=== PATIENT | female | born 1955 | race Caucasian/White ===

== ENCOUNTER → 2016-03-29 | Outpatient (CLI) | payer SELFPAY ==
[~2016-03-29] VITALS: Ht 162.6 cm; Wt 68.2 kg
[~2016-03-29] MED LIST: AC325T PO; ACHD5005 PO; ALPR.5T PO; AMBIEN CR PO; AMOX-355 PO; ASPI1TAB22 PO; BENADRYL; CARV12.52 PO; CLON0.5T3 PO; CYCL-97 PO; CYCL10TA9 PO; CYCL5TAB PO; DIAZ10TA3 PO; DIPH25TA82 PO; DPH25C PO; DULO20CA PO; ENLP10T PO; ESTR0.5T3 PO; ESTR1TAB24 PO; ESTR2TAB4 PO; HALCION; HYDR-2962 PO; HYDR-32; HYDR-3720 PO; HYDR1TAB; KETOROLAC 15 MG/ML VIAL IVP PRN; KETOROLAC 30 MG/ML VIAL ONE; LAMO100T69 PO; LOPE2CAP PO; LORA1TAB PO; MAGNESIUM 1 GM/100 ML IVPB 100 ML IV ONE; MAGNESIUM 1 GM/100 ML IVPB 100 ML IV PRN; MELO-198 PO; METO10TA3 PO; NS IV 500 ML 500 ML IV SCH; OMEP20TA2 PO; ONDN4T PO; PHN100C PO; PNV1TABL77 PO; PREMARIN; PROCHLORPERAZINE 10 MG/2ML INJ (COMPAZINE) IV PRN; SULF1TAB35 PO; TIZA2CAP PO; TIZA4CAP PO; TOPI50TA2 PO; TRIA0.253 PO; WRF2T; ZLP10T; ZLP10T PO; [UNRECOGNIZED DRUG - CODE] PO; [UNRECOGNIZED DRUG - OTHER]; [UNRECOGNIZED DRUG - OTHER] PO; diphenhydrAMINE 50 MG/ML INJ (BENADRYL) ONE; vicodin PO; zanaflex
--- OUTSIDE RECORDS SUMMARY | 2016-03-29 12:57 | XMS REPORT | Continuity of Care Document ---
Author Author [facility] Organization [facility] Address Unknown Phone Unavailable Care Team Providers Care Adult Protective Caseworker Name Role Phone No Pcp, Na PCP Unavailable Source Comments Some departments are not documenting in the electronic medical record. If you do not see the information that you expected, contact Release of Information in the Health Information Management department at [phone] for further assistance in locating additional records.[facility] Active Allergies and Adverse Reactions Allergen Noted Date Severity Reactions Comments Hay Fever And Allergy 09/04/2013 Low SNEEZING Relief Morphine 07/22/2014 Low NAUSEA AND VOMITING Current Medications Prescription Sig. Disp. Refills Start End Date Status Date acyclovir (ZOVIRAX) 800 Take 800 mg by mouth Active mg tablet every 4 hours. 1 tab five times daily HYDROcodone/acetaminophen Take 1 Tab by mouth every Active (NORCO) 5/325 mg tablet 6 hours as needed for Pain gabapentin (NEURONTIN) Take 1 Cap by mouth three 90 Cap 12 01/25/20 Active 300 mg capsule times daily. Take 1 tab 16 for 1 week, then 2 tabs for 1 week, then [address] (CYMBALTA) Take 1 Cap by mouth 90 Cap 1 03/25/19 Active 20 mg capsule daily. Take 20mg BID 14 17 days , then 40mg BID thereafter topiramate (TOPAMAX) 200 Take 1 Tab by mouth twice 180 Tab 12 Active mg tablet daily. 17 cyclobenzaprine Take on tab BID prn 15 Tab 3 03/25/19 Active (FLEXERIL) 5 mg tablet 17 topiramate (TOPAMAX) 200 Take 1 Tab by mouth twice 180 Tab 12 03/25/19 Discontin mg tablet daily. [address] (CYMBALTA) Take 1 Cap by mouth 90 Cap 1 02/23/2003/25 Discontin 20 mg capsule daily. Take 20mg BID 14 16 17 ued days , then 40mg BID thereafter cyclobenzaprine Take on tab BID prn 15 Tab 3 02/23/20 03/25/19 Discontin (FLEXERIL) 5 mg tablet 16 17 ued Active Problems Problem Noted Date Rectal bleeding 06/22/2015 Last Assessment & Plan: - Will obtain CBC, PT, PTT to ensure stability - However, she was urged to see her PCP physician regarding this as soon as possible - By description sounds like anal tears or bleeding hemorrhoids, however she will require further work-up as determined by her PCP. Hyperreflexia 06/22/2015 Overview: In addition to complaint of intermittent leg weakness (strength 5/5 as of right now) and leg numbness. No bowel/bladder complaints L ast Assessment & Plan: Will obtain MRI L Spine Hyperglycemia 06/22/2015 Overview: Multiple complaints which could be related to elevated BS L ast Assessment & Plan: Will obtain Ha1c Idiopathic peripheral neuropathy 06/22/2015 Overview: Present for >10 years SPEP wnl Ha1c NML B12 low - 350 L ast Assessment & Plan: - Recommended starting 1000 mcg oral B12 replacement over the counter - Gabapentin for shingles pain, headache, seizures and neuropathy Neuropathy ([facility]) 07/23/2014 Last Assessment & Plan: - Obtain B12 and SPEP - Cannot order Ha1c as Medicare will not cover Ha1c for Neuropathy. Patient will discuss this with her PCP. Seizure disorder ([facility]) 07/23/2014 Overview: - Status epilepticus admission 08/2013. MRI Brain and LP negative. - Seizures during hospitalization were: L head version, then L hemibody tonicity, followed by rhythmic jerking of all four extremities that would last for around a minute. All events were stereotypic with generalized rhythmic discharges on EEG. - She has multiple other types of episodes which are less clear that they are seizure - these other episodes may have started 10 years ago? Significant Psychiatric history as well. - Stopped Vimpat and Keppra as too expensive and with side effects - Started topamax with good results for both seizures and migraines L ast Assessment & Plan: - Complex partial seizures: 2 events in the past 6 months without secondary generalization. One event likely due to recent shingles infection. She also was mistakingly on 200 mg daily rather than BID 1 week ago she had increased to the correct dosage. She has good control with topamax, and though she does have distal numbness and tingling, she feels as though this is tolerable. - Will continue at topamax 200 mg BID (provided with 1 year prescription) - Gabapentin as below Migraine 12/18/2013 Overview: Headache Questionnaire Complaint: Headache Onset: Worsened in her 30's Exact location/description: throbbing & squeezing pain Frequency: several times per week Severity: 8 Recent head injury? no Decreased level of consciousness? Yes cant concentrate History of migraines? Yes History of hypertension? No Nasal or sinus congestion? No Nausea/Vomiting? Yes Double or blurred vision? Yes blurry vision Dizziness.lightheadedness? Yes Stiff neck? Yes Fever? No What have you taken or done to relieve the pain? Excedrine (stopped taking due to concern for medication overuse), xanaflex, flexaril (helped some) Any relief obtained? some Last Assessment & Plan: - Will titrate off of amitriptyline as this has caused weight gain. SHe is on 75 mg daily, I requested she break the tablet in half and take half a tab for one week then stop. - We will start gabapentin 300 mg TID (titrating up 300 mg daily for a week then 300 mg BID for a week then 300 mg TID thereafter.) We discussed that if she is on 300 mg TID for a month without headache relief we can increase to 600 mg TID, if she is tolerating it well with no side effects. - In the future if gabapentin does not work we can consider propanolol, effexor, cymbalta or nortriptyline. - Recommended that the patient take daily riboflavin and magnesium oxide 400 mg for prophylaxis - She can take excedrin as needed at the start of a headache as long as this does not exceed 8-10 tablets per month. Status epilepticus ([facility]) 09/05/2013 SLE (systemic lupus erythematosus) ([facility]) 09/05/2013 History of DVT (deep vein thrombosis) 09/05/2013 History of pulmonary embolism 09/05/2013 S/P IVC filter 09/05/2013 Respiratory failure ([facility]) 09/04/2013 Mechanically assisted ventilation 09/04/2013 Resolved Problems Problem Noted Date Resolved Date Complex partial seizure disorder (HCC) 09/05/2013 07/23/2014 Overview: - Status epilepticus admission 08/2013. MRI Brain and LP negative. - Seizures during hospitalization were: L head version, then L hemibody tonicity, followed by rhythmic jerking of all four extremities that would last for around a minute. All events were stereotypic with generalized rhythmic discharges on EEG. - She has multiple other types of episodes which are less clear that they are seizure - these other episodes may have started 10 years ago? Significant Psychiatric history as well. - Report of 12 seizures on 03/2014 - Stopped Vimpat and Keppra 2-3 months before this visit secondary to concern of weight gain. L ast Assessment & Plan: - Will try Topamax - titrate up to 200mg BID for seizure and migraine - For continuity of care, will refer to Epilepsy [facility] Hx of migraines 09/05/2013 07/23/2014 Seizures (HCC) 09/03/2013 07/23/2014 Most Recent Encounters Date Type Specialty Providers Description 03/25/2016 Refill Neurology Blanche Portillo MD Migraine without aura and without status migrainosus, not intractable (Primary Dx); Neuropathy (HCC); Idiopathic peripheral neuropathy; Seizure disorder (HCC) 03/13/2016 Documentation Neurology Blanche Portillo MD 02/29/2016 Documentation Neurology Blanche Portillo MD 02/28/2016 Orders Only Neurology Blanche Portillo MD 02/28/2016 Infusion Neurology Blanche Portillo MD 02/23/2016 Refill Neurology Blanche Portillo MD 02/21/2016 Telephone Neurology Blanche Portillo MD Headache 02/21/2016 Documentation Neurology Apollo Aviles MD 01/29/2016 Telephone Neurology Blanche Portillo MD Other 01/25/2016 Office Visit Neurology Blanche Portillo MD Migraine without aura and without status migrainosus, not intractable (Primary Dx); Neuropathy (HCC); Idiopathic peripheral neuropathy; Seizure disorder (HCC) 01/25/2016 Refill Neurology Blanche Portillo MD Social History Tobacco Use Types Packs/Day Years Used Date Never Smoker Alcohol Use Drinks/Week oz/Week Comments No 0 Standard 0.0 drinks or equivalent Last Filed Vital Signs Vital Sign Reading Time Taken Blood Pressure 151/86 01/25/2016 11:[address] Pulse 96 01/25/2016 11:[address] Temperature 36.5 C (97.7 F) 09/10/2013 11:27 AM CDT Respiratory Rate - - Height 1.651 m (5' 5") 01/25/2016 11:[address] Weight 81.647 kg (180 lb) 01/25/2016 11:[address] Body Mass Index 29.95 01/25/2016 11:[address] Oxygen Saturation 98% 09/10/2013 11:27 AM CDT Plan of Care Date Type Specialty Providers Description 07/25/2016 Appointment Radiology Ricco Layton MD [address] [place] [address] [phone] (Fax) 07/25/2016 Appointment Neurology Health Maintenance Due Date Last Done Comments Hepatitis C Screening 1955 Physical (Comprehensive) 10/23/1962 Exam Pertussis Vaccine 10/23/1966 Tetanus Vaccine 10/23/1972 Cervical Cancer Screening 10/23/1976 Breast Cancer Screening 1995 Colorectal Cancer 10/23/2005 Screening Shingles Vaccine 2015 Influenza Vaccine 10/26/2015 Results from Last 3 Months Not on file
[2016-03-29 13:20] VITALS: BP 115/72
[2016-03-29] MEDS: diphenhydrAMINE 50 MG/ML INJ (BENADRYL) IVP PRN ×2 (13:20→14:45)
[2016-03-29 15:30] VITALS: BP 115/72
== END ==
LOC: SDC 12:54
DX: G43.909 Migraine, unspecified, not intractable, without status migrainosus (principal)
CPT/HCPCS: 36415; 82565; 96365; 96366; 96375; 96376

== ENCOUNTER 2020-01-19 10:59 | Emergency (ER) | payer MEDICARE, MEDICAID ==
[~2020-01-19] VITALS: Ht 165 cm; Wt 63.6 kg
[~2020-01-19 10:59] MED LIST changes: -KETOROLAC 15 MG/ML VIAL IVP PRN; -KETOROLAC 30 MG/ML VIAL ONE; -MAGNESIUM 1 GM/100 ML IVPB 100 ML IV ONE; -MAGNESIUM 1 GM/100 ML IVPB 100 ML IV PRN; -NS IV 500 ML 500 ML IV SCH; -PROCHLORPERAZINE 10 MG/2ML INJ (COMPAZINE) IV PRN; -diphenhydrAMINE 50 MG/ML INJ (BENADRYL) ONE
[2020-01-19] MEDS ORDERED: KETOROLAC 30 MG/ML VIAL IVP ONE (11:15)
[2020-01-19] MEDS ORDERED: LORazepam INJ 2 MG/ML (ATIVAN) VIAL IVP ONE (11:15)
--- NOTE | 2020-01-19 11:22 | NUR ---
CALLED AND TALKED WITH
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
[2020-01-19 11:26] LABS: ABG BASE EXCESS -7.8 MMOL/L (-2.5-2.5); ABG OXYGEN SATURATION 98 % (94-100); ABG PCO2 29 MMHG (35-45); ABG PH 7.38 (7.37-7.43); ABG PO2 103 MMHG (79-93); ABG TCO2 17.2 MMOL/L (21.0-31.0)
[2020-01-19 11:28] LABS: INSPIRED O2 ROOM AIR; VENTILATOR NO
--- NOTE | 2020-01-19 11:34 | NUR ---
ABD DRAWN BY MED STUDENT.
[2020-01-19 11:56] LABS: BASOPHILS % (AUTO) 1 % (0-10); EOSINOPHILS # (AUTO) 0.1 10^3/uL (0.0-0.3); EOSINOPHILS % (AUTO) 2 % (0-10); HEMATOCRIT 39 % (35-52); HEMOGLOBIN 11.9 g/dL (11.5-16.0); LYMPHOCYTES % (AUTO) 23 % (12-44); MEAN CORPUSCULAR HEMOGLOBIN 30 pg (25-34); MEAN CORPUSCULAR HGB CONC 31 g/dL (32-36); MEAN CORPUSCULAR VOLUME 98 fL (80-99); MEAN PLATELET VOLUME 10.5 fL (9.0-12.2); MONOCYTES # (AUTO) 0.3 10^3/uL (0.0-1.0); MONOCYTES % (AUTO) 8 % (0-12); NEUTROPHILS # (AUTO) 2.8 10^3/uL (1.8-7.8); NEUTROPHILS % (AUTO) 66 % (42-75); PLATELET COUNT 216 10^3/uL (130-400); WHITE BLOOD COUNT 4.1 10^3/uL (4.3-11.0)
[2020-01-19 12:11] LABS: POTASSIUM 4.3 MMOL/L (3.6-5.0)
[2020-01-19 12:12] LABS: CALCIUM 8.5 MG/DL (8.5-10.1)
[2020-01-19 12:14] LABS: TOTAL PROTEIN 6.9 GM/DL (6.4-8.2)
[2020-01-19 12:16] LABS: BILIRUBIN,TOTAL 0.4 MG/DL (0.1-1.0)
[2020-01-19 12:17] LABS: CREATININE SERUM 1.14 MG/DL (0.60-1.30)
--- NOTE | 2020-01-19 12:40 | NUR ---
EYES CLOSED MORE RELAXED
--- NOTE | 2020-01-19 13:21 | Diagnostic Imaging Report ---
PROCEDURE: CT head and CT cervical spine without contrast. TECHNIQUE: Multiple contiguous axial images were obtained through the brain and cervical spine without the use of intravenous contrast. Sagittal and coronal reformations through the cervical spine were then performed. Auto Exposure Controls were utilized during the CT exam to meet ALARA standards for radiation dose reduction. INDICATION: Fall. Back pain. COMPARISON: 09/01/2013. FINDINGS: CT HEAD: The ventricles and cortical sulci are diffusely prominent, compatible with age-related volume loss. There is no midline shift or mass-effect. No acute intra-axial hemorrhage is seen. There are no abnormal areas of increased or decreased density to suggest acute hemorrhage or edema. No extra-axial masses or collections are present. The bony calvarium is intact. The visualized paranasal sinuses are unremarkable. The mastoid air cells are clear. CT CERVICAL SPINE: Static alignment of the cervical spine is maintained. There is no significant ariella or retrolisthesis. There is no evidence of jumped facets. The vertebral body heights are maintained. There is no acute fracture. No bony fragments are seen within the spinal canal. Mild multilevel degenerative changes are noted and consist of intervertebral disc height loss. There is also endplate sclerosis with anterior and posterior osteophyte formations, greatest at the C5-C6 and C6-C7 levels. Pre and paravertebral soft tissue structures are unremarkable. Note is made of calcified carotid atherosclerosis. Included portions of the lung apices show no additional acute abnormalities. IMPRESSION: 1. No acute intracranial abnormality. No CT evidence of mass, acute infarct or intracranial hemorrhage. 2. No acute fracture or dislocation of the cervical spine. 3. Mild multilevel degenerative changes, greatest at C5-C6 and C6-C7. Dictated by: Dictated on workstation # [id number]
--- NOTE | 2020-01-19 13:28 | Diagnostic Imaging Report ---
PROCEDURE: CT thoracic and lumbar spine without contrast. TECHNIQUE: Multiple contiguous axial images were obtained through the thoracic and lumbar spine without the use of intravenous contrast. Sagittal and coronal reformations were then performed.All CT scans use one or more of the following dose optimizing techniques: automated exposure control, MA and/or KvP adjustment based on a patient size and exam type, or iterative reconstruction. INDICATION: Fall. Back pain. COMPARISON: 05/15/2011. FINDINGS: CT thoracic spine: Static alignment of the thoracic spine is maintained. There is no significant anteroretrolisthesis. There is no evidence of jumped facets. Vertebral body heights are maintained. There is no acute fracture. No bony fragments are seen within the spinal canal. Mild multilevel degenerative changes are noted consistent of intervertebral disc height loss with small anterior disc osteophyte complex formations. There is also mild multilevel facet arthropathy. Pre and paravertebral soft tissue structures are unremarkable. Included portions of the lungs are clear. Small pericardial effusion is noted. CT lumbar spine: Static alignment of the lumbar spine is maintained. There is no significant anteroretrolisthesis. There is no evidence of jumped facets. Vertebral body heights are preserved. There is no acute fracture. No bony fragments of the spinal canal. There are mild multilevel degenerative changes consistent of mild intervertebral disc height loss and mild multilevel facet arthropathy. Pre and paravertebral soft tissue structures are unremarkable. Indwelling IVC filter is noted. IMPRESSION: 1. No acute fracture or dislocation of the thoracic or lumbar spine. Dictated by: Dictated on workstation # [id number]
[2020-01-19] MEDS ORDERED: LACTATED RINGERS 1,000 ML IV STA (13:42)
[2020-01-19] MEDS ORDERED: NAPR-1071 PO (13:53)
--- NOTE | 2020-01-19 13:55 | NUR ---
DR AIKEN CALLED AND TALKED WITH PATIENT PATIENT REPORTS SHE IS FEELING BETTER.
[2020-01-19 14:34] VITALS: BP 102/54
--- NOTE | 2020-01-19 14:38 | NUR ---
HERE TO GET PATIENT.
== END 2020-01-19 14:39 | disposition home or self-care (01) ==
LOC: EDUNIT# 10:59 → ER 11:00
DX: F41.0 Panic disorder [episodic paroxysmal anxiety] (principal); M54.9 Dorsalgia, unspecified; F41.9 Anxiety disorder, unspecified; F32.9 Major depressive disorder, single episode, unspecified; G40.909 Epilepsy, unspecified, not intractable, without status epilepticus; R40.2410 Glasgow coma scale score 13-15, unspecified time; Z79.82 Long term (current) use of aspirin
CPT/HCPCS: 36415; 70450; 72125; 72128; 72131; 80053; 82805; 85025

== ENCOUNTER 2020-01-26 13:30 | Emergency (ER) | payer MEDICAID, MEDICARE ==
[~2020-01-26] VITALS: Ht 170 cm; Wt 65.7 kg
[~2020-01-26 13:30] MED LIST changes: +NAPR-1071 PO
--- NOTE | 2020-01-26 13:59 | ED Head Injury ---
General Chief Complaint: Head/Cervical Problems Stated Complaint: HIT HEAD,AMS Source: patient Exam Limitations: clinical condition (uncooperative, confused ) History of Present Illness Date Seen by Provider: Jan 26, 2020 Time Seen by Provider: 13:58 Initial Comments This is a 64-year-old female who presents to ER with her daughter for complaints of headache altered mental status after falling on 01/19/20. States she was seen at this ED and discharged home with no complications. Daughter states over the past three days she has been having increased episodes of confusion, emotional liability, and headache. States she has a history of seizures and daughter reports witnessing her have 3 seizures "back to back" yesterday afternoon. States her mom's neck turned and her body stiffened up and shook. Denies her having LOC, falling, or loss of incontinence during episodes. Patient is noted to be a poor historian, and has scattered thought processes, making statements of " go get the phone from your dad, he's at the pharmacy, go get the phone" to her daughter. Her daughter states she has never behaved like this in the past. Patient reports GUPTA, generalized body pain from her arthritis, photophobia, cough, shortness of breath, chest pain, weakness on one side of the body, abdominal pain, or dysuria. Allergies and Home Medications Allergies Coded Allergies: No Known Drug Allergies (Unverified , 07/20/08) Home Medications Aspirin/Acetaminophen/Caffeine 1 Tab Tablet, 2 TAB PO DAILY PRN for MIGRAINE, (Reported) Cyclobenzaprine HCl 5 Mg Tablet, 5 MG PO BID PRN, (Reported) Diphenhydramine Hcl 25 Mg Tablet, 25 MG PO Q6H PRN for ALLERGIES, (Reported) Duloxetine HCl 20 Mg Cap, 20 MG PO BID, (Reported) Lorazepam 1 Mg Tablet, 1 MG PO TID PRN for ANXIETY Prescribed by: ALBERT PARADA on 01/26/20 1805 Naproxen 500 Mg Tablet, 500 MG PO BID Prescribed by: DELBERT AIKEN on 01/19/20 1353 Topiramate 50 Mg Tablet, 50 MG PO BID, (Reported) Patient Home Medication List Home Medication List Reviewed: Yes Review of Systems Review of Systems Constitutional: see HPI, weakness Eyes: Photophobia Ears, Nose, Mouth, Throat: no symptoms reported Respiratory: no symptoms reported Cardiovascular: no symptoms reported Gastrointestinal: see HPI Genitourinary: no symptoms reported Musculoskeletal: see HPI Skin: no symptoms reported Psychiatric/Neurological: Anxiety, Emotional Problems, Tonic Clonic Seizures Endocrine: No Symptoms Reported Hematologic/Lymphatic: No Symptoms Reported Past Uuzphkx-Nxleua-Hlrfhb Hx Patient Social History Recent Foreign Travel: No Contact w/Someone Who Travel: No Recent Hopitalizations: Yes Immunizations Up To Date Date of Pneumonia Vaccine: Dec 25, 2010 Date of Influenza Vaccine: Dec 25, 2010 Past Medical History Surgeries: Yes (VENA CAVA FILTER, RAND L FEET. ) Appendectomy, Cardiac, Eye Surgery, Gallbladder, Hysterectomy, Orthopedic, T onsillectomy Respiratory: Yes Pulmonary Embolism Cardiac: Yes (ARYTHMIA AND PARTAIL BLOCKAGE) Neurological: Yes Headaches /Migraines, Seizure Disorder Reproductive Disorders: Yes Benign Prostatic Hyperpl Gastrointestinal: Yes Gastroesophageal Reflux, Diverticulosis, Hiatal Hernia, Ulcer Musculoskeletal: Yes Fibromyalgia, Rheumatoid Arthritis Endocrine: No Lupus Cancer: No Psychosocial: Yes Anxiety, PTSD, Suicide Attempts, Depression Integumentary: No Blood Disorders: No Physical Exam Vital Signs Vital Signs - First Documented 01/26/20 13:59 Temp 36.4 Pulse 100 Resp 25 B/P (MAP) 142/87 (105) Pulse Ox 97 Capillary Refill : Height, Weight, BMI Height: 5'4.00" Weight: 150lbs. 6.0oz. 68.489324ym; 23.00 BMI Method:Stated General Appearance: mild distress HEENT: PERRL/EOMI, pharynx normal, other (PERRL) Neck: full range of motion, supple, normal inspection Cardiovascular: regular rate, rhythm, no murmur Respiratory: chest non-tender, lungs clear, normal breath sounds, no respiratory distress Gastrointestinal: normal bowel sounds, non tender, soft Extremities: normal range of motion, normal inspection, normal capillary refill Psychiatric: alert, oriented x 3 (scattered thought process ), other Crainal Nerves: normal hearing, normal speech, PERRL; No facial asymmetry, No facial droop, No facial weakness, No tongue deviation to R Coordination/Gait: other (non cooperative with exam ) Motor/Sensory: no motor deficit, no sensory deficit Skin: normal color, warm/dry; No rash Rj Coma Score Best Eye Response: (4) Open Spontaneously Best Verbal Response: (5) Oriented Best Motor Response: (6) Obeys Commands Rj Total: 15 Progress/Results/Core Measures Results/Orders Lab Results Laboratory Tests Test 01/26/20 13:55 01/26/20 15:29 01/26/20 15:40 Range/Units White Blood Count 6.5 4.3-11.0 10^3/uL Red Blood Count 3.81 3.80-5.11 10^6/uL Hemoglobin 11.6 11.5-16.0 g/dL Hematocrit 37 35-52 % Mean Corpuscular Volume 96 80-99 fL Mean Corpuscular Hemoglobin 30 25-34 pg Mean Corpuscular Hemoglobin Concent 32 32-36 g/dL Red Cell Distribution Width 12.9 10.0-14.5 % Platelet Count 252 130-400 10^3/uL Mean Platelet Volume 10.6 9.0-12.2 fL Prothrombin Time 14.1 12.2-14.7 SEC INR Comment 1.1 0.8-1.4 Activated Partial Thromboplast Time 20 L 24-35 SEC Sodium Level 141 135-145 MMOL/L Potassium Level 3.3 L 3.6-5.0 MMOL/L Chloride Level 105 98-107 MMOL/L Carbon Dioxide Level 19 L 21-32 MMOL/L Anion Gap 17 H 5-14 MMOL/L Blood Urea Nitrogen 6 L 7-18 MG/DL Creatinine 1.18 0.60-1.30 MG/DL Estimat Glomerular Filtration Rate 46 BUN/Creatinine Ratio 5 Glucose Level 90 70-105 MG/DL Calcium Level 8.9 8.5-10.1 MG/DL Corrected Calcium 8.7 8.5-10.1 MG/DL Total Bilirubin 0.3 0.1-1.0 MG/DL Aspartate Amino Transf (AST/SGOT) 17 5-34 U/L Alanine Aminotransferase (ALT/SGPT) 13 0-55 U/L Alkaline Phosphatase 50 40-136 U/L Total Protein 6.7 6.4-8.2 GM/DL Albumin 4.3 3.2-4.5 GM/DL Serum Alcohol < 10 <10 MG/DL Coronavirus 2019 ([facility]) Negative Negative Urine Color YELLOW Urine Clarity CLOUDY Urine pH 7.0 5-9 Urine Specific Mystic 1.020 1.016-1.022 Urine Protein NEGATIVE NEGATIVE Urine Glucose (UA) NEGATIVE NEGATIVE Urine Ketones 2+ H NEGATIVE Urine Nitrite NEGATIVE NEGATIVE Urine Bilirubin 2+ H NEGATIVE Urine Urobilinogen 0.2 < = 1.0 MG/DL Urine Leukocyte Esterase NEGATIVE NEGATIVE Urine RBC (Auto) NEGATIVE NEGATIVE Urine RBC NONE /HPF Urine WBC 2-5 /HPF Urine Squamous Epithelial Cells 2-5 /HPF Urine Crystals PRESENT H /LPF Urine Amorphous Sediment FEW EMILY URATES H /LPF Urine Bacteria FEW H /HPF Urine Casts PRESENT /LPF Urine Granular Casts 5-10 H /LPF Urine Mucus NEGATIVE /LPF Urine Culture Indicated YES My Orders Orders - ALBERT PARADA DEV OPS ENGINEER Cbc No Diff (01/26/20 13:49) Alcohol (01/26/20 13:49) Ua Culture If Indicated (01/26/20 13:49) Ct Head/Cervical Spine Wo (01/26/20 13:49) Ed Iv/Invasive Line Start (01/26/20 13:49) Comprehensive Metabolic Panel (01/26/20 13:49) Protime With Inr (01/26/20 14:03) Partial Thromboplastin Time (01/26/20 14:03) Lactated Ringers (Lr 1000 Ml Iv Solution (01/26/20 14:25) Lorazepam Injection (Ativan Injection) (01/26/20 15:15) Urine Culture (01/26/20 15:40) Covid 19 Inhouse Test (01/26/20 16:39) Medications Given in ED Current Medications Medications Dose Ordered Sig/Radha Route Start Time Stop Time Status Last Admin Dose Admin Lactated Ringer's 1,000 ml @ 0 mls/hr Q0M ONCE IV 01/26/20 14:25 01/26/20 14:26 DC 01/26/20 14:38 1,000 MLS/HR Lorazepam 2 mg ONCE ONCE IVP 01/26/20 15:15 01/26/20 15:16 DC 01/26/20 15:18 2 MG Vital Signs/I&O 01/26/20 01/26/20 13:59 18:05 Temp 36.4 36.4 Pulse 100 100 Resp 25 25 B/P (MAP) 142/87 (105) 142/87 (105) Pulse Ox 97 97 Progress Progress Note : Progress Note Upon arrival patient has intermittent episodes of clear thoughts and scattered thought process. She is uncooperative with exam, and appears very excitable, anxious, and irritable while obtaining history and physical. While discussing symptoms with daughter, she would intermittently interject with corrected inform ation (such as name of her doctor or medications). Concerns for hemorrage post fall. Ordered basic labs, ETOH, and CT head/neck. While talking with daughter patient became very agitated chanting "theres nothing wrong with me, I'm perfectly fine, you will find nothing wrong with me because I am "perfectly" fine". He behavior was bordering on hysteria. Ordered Ativan 2mg IVP. Apx 30 minutes after Ativan, patient calm and more cooperative. Discussed findings of labs and CT with daughter and patient. Offered to consult neurology for persistent seizure and changes in mentation. Both agreeable with consultation. Reviewed symptoms and findings with her . He states patient has been having increasing episodes of emotional lability going from happy, to crying, to angry, and then back to overly loving. Also states these behaviors seem to have worsened since their children have moved out. Discussed case with adobe cq developer at [facility]. The attending neurologist was unable to personally review case on phone, however the adobe cq developer reviewed the case with him as well as previous testing/visits at . States patient has had normal EEG's and no witnessed seizures at and notes the possibility of pseudo seizures. Discussed that the patient was just started on Keppra in November and this may be contributing to her agiation and labile moods. Neuro recommended stopping Keppra and starting on alternative medication such as Lamictal, or having her call in tomorrow to the clinical for televisit and having her neurologist adjust medications. Reviewed recommendations by neurology and discharge plan of care with patient, spouse, and daughter. All are agreeable with plan. Diagnostic Imaging Diagonstic Imaging: CT Plain Films/CT/US/NM/MRI: c-spine, head Comments NAME: TASH GUALLPA MED REC#: [id number] PT STATUS: REG ER : 1955 PHYSICIAN: ALBERT PARADA APRN ADMIT DATE: 01/26/20/ER Signed Date of Exam:01/26/20 CT HEAD/CERVICAL SPINE WO PROCEDURE: CT head and CT cervical spine without contrast. TECHNIQUE: Multiple contiguous axial images were obtained through the brain and cervical spine without the use of intravenous contrast. Sagittal and coronal reformations through the cervical spine were then performed. Auto Exposure Controls were utilized during the CT exam to meet ALARA standards for radiation dose reduction. INDICATION: Fall with altered mental status. Comparison is made with prior CT from 01/19/2020. CT BRAIN: Ventricles and sulci are within normal limits. No sulcal effacement or midline shift is identified. No acute intra-axial or extra-axial hemorrhage is detected. Cisterns are patent. Visualized paranasal sinuses are clear. IMPRESSION: No acute intracranial process is detected. CT CERVICAL SPINE: Alignment is normal. There is degenerative disc disease at C5-C6 and C6-C7 levels with disc space narrowing and marginal spurring. There is multilevel facet arthropathy. No fracture is identified. Odontoid is intact. Prevertebral tissues are within normal limits. IMPRESSION: Cervical spondylosis. No acute bony abnormality is detected. Dictated by: Dictated on workstation # [id number] Dict: 01/26/20 1412 Trans: 01/26/20 1607 [facility] [id number] Interpreted by: RAJIV MOONEY MD Electronically signed by: RAJIV MOONEY MD 01/26/20 1607 Departure Communication (Admissions) Time/Spoke to Consulting Phy: 16:04 Neurology Impression Primary Impression: Migraine Additional Impression: Seizure after head injury Disposition: 01 HOME, SELF-CARE Condition: Improved Departure-Patient Inst. Decision time for Depature: 17:42 Referrals: JOSEFINA NGUYỄN DO (PCP) Primary Care Physician NO,LOCAL PHYSICIAN (Family) Primary Care Physician Patient Instructions: Migraines (DC), Seizures, Adult (DC) Add. Discharge Instructions: Plan: 1. Discharge home. 2. Hold Keppra tonight and tomorrow. 3. May take Ativan 1mg by mouth three times a day as needed for anxiety. Take one tablet tonight and one tablet int the morning. 4. Call Neruology clinic in the morning for follow up. Per on-call Neurologist recommendations patient should receive tele-health visit tomorrow to discuss possibly changing medication from Keppra to an alternative medication due to possible adverse reaction of agitation and irritability ([phone]). 5. May return to ER for any new, concerning, or worsening symptoms. All discharge instructions reviewed with patient and/or family. Voiced understanding. Scripts Lorazepam (Ativan) 1 Mg Tablet 1 MG PO TID PRN for ANXIETY for 7 Days, #20 TAB 0 Refills Prov: ALBERT PARADA DEV OPS ENGINEER 01/26/20 ALBERT PARADA APRN Jan 26, 2020 13:59
[2020-01-26 14:03] LABS: HEMOGLOBIN 11.6 g/dL (11.5-16.0); MEAN PLATELET VOLUME 10.6 fL (9.0-12.2); WHITE BLOOD COUNT 6.5 10^3/uL (4.3-11.0)
[2020-01-26 14:16] LABS: ALBUMIN 4.3 GM/DL (3.2-4.5); CHLORIDE 105 MMOL/L (98-107); POTASSIUM 3.3 MMOL/L (3.6-5.0)
[2020-01-26 14:17] LABS: SODIUM 141 MMOL/L (135-145)
[2020-01-26 14:18] LABS: CALCIUM 8.9 MG/DL (8.5-10.1)
--- NOTE | 2020-01-26 14:18 | Diagnostic Imaging Report ---
PROCEDURE: CT head and CT cervical spine without contrast. TECHNIQUE: Multiple contiguous axial images were obtained through the brain and cervical spine without the use of intravenous contrast. Sagittal and coronal reformations through the cervical spine were then performed. Auto Exposure Controls were utilized during the CT exam to meet ALARA standards for radiation dose reduction. INDICATION: Fall with altered mental status. Comparison is made with prior CT from 01/19/2020. CT BRAIN: Ventricles and sulci are within normal limits. No sulcal effacement or midline shift is identified. No acute intra-axial or extra-axial hemorrhage is detected. Cisterns are patent. Visualized paranasal sinuses are clear. IMPRESSION: No acute intracranial process is detected. CT CERVICAL SPINE: Alignment is normal. There is degenerative disc disease at C5-C6 and C6-C7 levels with disc space narrowing and marginal spurring. There is multilevel facet arthropathy. No fracture is identified. Odontoid is intact. Prevertebral tissues are within normal limits. IMPRESSION: Cervical spondylosis. No acute bony abnormality is detected. Dictated by: Dictated on workstation # [id number]
[2020-01-26 14:19] LABS: GLUCOSE 90 MG/DL (70-105); TOTAL PROTEIN 6.7 GM/DL (6.4-8.2)
[2020-01-26 14:20] LABS: CARBON DIOXIDE 19 MMOL/L (21-32)
[2020-01-26 14:21] LABS: BILIRUBIN,TOTAL 0.3 MG/DL (0.1-1.0)
[2020-01-26 14:22] LABS: ALKALINE PHOSPHATASE 50 U/L (40-136)
[2020-01-26 14:23] LABS: CREATININE SERUM 1.18 MG/DL (0.60-1.30); GFR ESTIMATED 46
[2020-01-26 14:24] LABS: BUN/CREATININE RATIO 5
[2020-01-26 14:25] LABS: ALANINE AMINOTRANSFERASE 13 U/L (0-55)
[2020-01-26] MEDS ORDERED: LACTATED RINGERS 1,000 ML IV ONE (14:25)
[2020-01-26 14:30] LABS: INR 1.1 (0.8-1.4); PROTHROMBIN TIME PATIENT 14.1 SEC (12.2-14.7)
[2020-01-26] MEDS ORDERED: LORazepam INJ 2 MG/ML (ATIVAN) VIAL IVP ONE (15:15)
[2020-01-26 15:45] LABS: BILIRUBIN,URINE 2+ (NEGATIVE); CLARITY,URINE CLOUDY; COLOR,URINE YELLOW; GLUCOSE, URINE (UA) NEGATIVE (NEGATIVE); KETONES,URINE 2+ (NEGATIVE); LEUKOCYTE ESTERASE ,URINE NEGATIVE (NEGATIVE); NITRITE,URINE NEGATIVE (NEGATIVE); PROTEIN,URINE NEGATIVE (NEGATIVE)
[2020-01-26 16:04] LABS: AMORPHOUS SEDIMENT,UR FEW AMOR URATES /LPF; BACTERIA,URINE FEW /HPF
[2020-01-26 18:05] VITALS: BP 142/87
[2020-01-26] MEDS ORDERED: LORA-405 PO (18:05)
== END 2020-01-26 18:14 | disposition home or self-care (01) ==
LOC: EDUNIT# 13:30 → ER 13:32
DX: G43.909 Migraine, unspecified, not intractable, without status migrainosus (principal); G40.909 Epilepsy, unspecified, not intractable, without status epilepticus; F41.9 Anxiety disorder, unspecified; F32.9 Major depressive disorder, single episode, unspecified; R40.2410 Glasgow coma scale score 13-15, unspecified time; Z20.828 Contact with and (suspected) exposure to other viral communicable diseases; Z79.82 Long term (current) use of aspirin
CPT/HCPCS: 70450; 72125; 80053; 81000; 85027; 85610; 85730; 87088; G0480; U0002; 36415; 80320; 87635

== ENCOUNTER → 2020-02-09 | Outpatient (CLI) | payer MEDICARE ==
[~2020-02-09] MED LIST changes: +GADOBUTROL 7.5 MMOL/7.5 ML (GADAVIST) VIAL IV ONE; +LORA-405 PO
--- NOTE | 2020-02-09 15:13 | Diagnostic Imaging Report ---
PROCEDURE: MR imaging of the brain with and without contrast. TECHNIQUE: Multiplanar, multisequence MR imaging of the brain was performed with and without contrast. INDICATION: Fall ten days ago. Persistent complaint since that injury. COMPARISON: Brain MRI performed 09/02/2013 and correlated with head CT 01/26/2020. FINDINGS: There has been interval resolution of the previous mild diffuse thickened hyperenhancement of the pachymeninges. Today, following contrast, no abnormal or suspicious parenchymal or meningeal enhancement was present. There was no evidence for mass there is no abnormal extra-axial fluid collection and there is no finding of hemorrhage. No focal or generalized cerebral edema. No evidence for an elevation of the intracranial pressures. The basilar cisterns are patent and there is no sulcal effacement. No suspicious white matter disease. The midline structures are nondisplaced. Orbits and sinuses appear within normal limits. IMPRESSION: 1. Unremarkable brain MRI. No acute or suspicious finding. 2. We note interval resolution of prior abnormal enhancement of the pachymeninges which on follow up appeared normal. Dictated by: Dictated on workstation # [id number]
== END ==
LOC: RAD 13:45
PROVIDERS: ATTEND Nurse Practitioner Community Health
DX: Z81.8 Family history of other mental and behavioral disorders (principal)
CPT/HCPCS: 70553

== ENCOUNTER 2020-02-21 12:27 | Emergency (ER) | payer SELFPAY ==
[~2020-02-21] VITALS: Ht 163.4 cm; Wt 65.7 kg
[~2020-02-21 12:27] MED LIST changes: -GADOBUTROL 7.5 MMOL/7.5 ML (GADAVIST) VIAL IV ONE
[2020-02-21 13:53] LABS: BASOPHILS # (AUTO) 0.1 10^3/uL (0.0-0.1); BASOPHILS % (AUTO) 1 % (0-10); EOSINOPHILS # (AUTO) 0.1 10^3/uL (0.0-0.3); EOSINOPHILS % (AUTO) 1 % (0-10); HEMATOCRIT 42 % (35-52); HEMOGLOBIN 12.5 g/dL (11.5-16.0); LYMPHOCYTES # (AUTO) 0.9 10^3/uL (1.0-4.0); LYMPHOCYTES % (AUTO) 12 % (12-44); MEAN CORPUSCULAR HEMOGLOBIN 30 pg (25-34); MEAN CORPUSCULAR HGB CONC 30 g/dL (32-36); MEAN CORPUSCULAR VOLUME 101 fL (80-99); MEAN PLATELET VOLUME 10.9 fL (9.0-12.2); MONOCYTES # (AUTO) 0.6 10^3/uL (0.0-1.0); MONOCYTES % (AUTO) 8 % (0-12); NEUTROPHILS # (AUTO) 6.2 10^3/uL (1.8-7.8); NEUTROPHILS % (AUTO) 78 % (42-75); PLATELET COUNT 301 10^3/uL (130-400); WHITE BLOOD COUNT 7.9 10^3/uL (4.3-11.0)
[2020-02-21 14:13] LABS: ALANINE AMINOTRANSFERASE 21 U/L (0-55); ALBUMIN 4.8 GM/DL (3.2-4.5); ALKALINE PHOSPHATASE 60 U/L (40-136); BILIRUBIN,TOTAL 0.4 MG/DL (0.1-1.0); BUN/CREATININE RATIO 7; CALCIUM 9.2 MG/DL (8.5-10.1); CARBON DIOXIDE 17 MMOL/L (21-32); CHLORIDE 110 MMOL/L (98-107); CREATININE SERUM 1.21 MG/DL (0.60-1.30); GFR ESTIMATED 45; GLUCOSE 65 MG/DL (70-105); POTASSIUM 4.6 MMOL/L (3.6-5.0); SODIUM 142 MMOL/L (135-145); TOTAL PROTEIN 7.8 GM/DL (6.4-8.2)
[2020-02-21] MEDS ORDERED: DEXTROSE 10% IV SOLUTION 1,000 ML IV ONE (14:15)
[2020-02-21 15:35] LABS: CLARITY,URINE CLEAR; COLOR,URINE YELLOW; GLUCOSE, URINE (UA) NEGATIVE (NEGATIVE); KETONES,URINE 3+ (NEGATIVE); LEUKOCYTE ESTERASE ,URINE NEGATIVE (NEGATIVE); NITRITE,URINE NEGATIVE (NEGATIVE); PROTEIN,URINE NEGATIVE (NEGATIVE)
[2020-02-21 15:45] LABS: BILIRUBIN,URINE 2+ (NEGATIVE)
[2020-02-21 15:48] LABS: BACTERIA,URINE TRACE /HPF; HYALINE CASTS, URINE 0-2 /LPF; RBC,URINE 0-2 /HPF; SQUAMOUS EPITHELIAL CELL,UR 0-2 /HPF; WBC,URINE 0-2 /HPF
[2020-02-21 16:09] LABS: AMPHETAMINE SCREEN, URINE NEGATIVE (NEGATIVE); BARBITURATE SCREEN URINE NEGATIVE (NEGATIVE); BENZODIAZEPINES SCREEN URINE NEGATIVE (NEGATIVE); CANNABINOID SCREEN, URINE NEGATIVE (NEGATIVE); COCAINE SCREEN URINE NEGATIVE (NEGATIVE); METHADONE STAT NEGATIVE (NEGATIVE); METHAMPHETAMINE SCREEN URINE S NEGATIVE (NEGATIVE); OPIATE SCREEN URINE NEGATIVE (NEGATIVE); OXYCODONE STAT NEGATIVE (NEGATIVE); PROPOXYPHENE STAT NEGATIVE (NEGATIVE); TRICYCLIC ANTIDEPRESSANTS SCRE NEGATIVE (NEGATIVE)
--- NOTE | 2020-02-21 16:18 | Diagnostic Imaging Report ---
PROCEDURE: CT head wo r/o stroke. TECHNIQUE: Multiple contiguous axial images were obtained through the brain without the use of intravenous contrast. Auto Exposure Controls were utilized during the CT exam to meet ALARA standards for radiation dose reduction. INDICATION: Altered mental status. CT HEAD: CT images of the head were obtained. FINDINGS: Ventricles and sulci are within normal limits for size. There is no intracranial hemorrhage identified. There is no abnormal mass effect or shift of midline structures. There is mild atherosclerotic calcification within distal internal carotid arteries. IMPRESSION: Unremarkable CT of the head. MRI has greater sensitivity for ischemia in the acute setting. Dictated by: Dictated on workstation # [id number]
[2020-02-21 16:19] LABS: MAGNESIUM 2.3 MG/DL (1.6-2.4); SALICYLATE < 5.0 MG/DL (5.0-20.0)
[2020-02-21 16:39] LABS: TSH (THYROID ANALYZER) 1.56 UIU/ML (0.35-4.94)
[2020-02-21 17:08] LABS: ACETAMINOPHEN < 10 UG/ML (10-30)
--- NOTE | 2020-02-21 17:30 | ED Psychosocial ---
General Chief Complaint: Altered Mental Status Stated Complaint: AMS Nursing Triage Note: Patient reports that since she has been having altered mental status. verified by her daughter. Source: patient Exam Limitations: no limitations History of Present Illness Date Seen by Provider: Feb 21, 2020 Time Seen by Provider: 12:58 Initial Comments This is 64-year-old woman is brought to the emergency room by her daughter with complaints of about 5 days of altered mental status. She has quit eating solid food and has a blood sugar of 43 at this time. She has been preoccupied with comments of and seems to be passively trying to impact or hasten . She states that she has quit eating because she is expecting to . She has developed extremely labile mood. She will express strong positive affection and then have an immediate change in mood and become very hateful toward her family. She appears weak and confused. She initiates conversation with me by perseverating about not receiving any real blood products but only wanting blood products substitutes. Patient's conversation is sometimes nonsensical. She has tangential thinking and scattered thoughts. She does not give consistent histories. Her daughter reports she has never seen her act in this manner. She does have a history of overdose requiring intensive care and a rehab treatment after discharge from the hospital. She does have a history of psychiatric conditions including depression, anxiety, and PTSD. She reports she is on Medicare for "disability", but she does not clarify what that disability is. Her daughter is present with her today. Allergies and Home Medications Allergies Coded Allergies: No Known Drug Allergies (Unverified , 07/20/08) Home Medications Aspirin/Acetaminophen/Caffeine 1 Tab Tablet, 2 TAB PO DAILY PRN for MIGRAINE, (Reported) Cyclobenzaprine HCl 5 Mg Tablet, 5 MG PO BID PRN, (Reported) Diphenhydramine Hcl 25 Mg Tablet, 25 MG PO Q6H PRN for ALLERGIES, (Reported) Duloxetine HCl 20 Mg Cap, 20 MG PO BID, (Reported) Lorazepam 1 Mg Tablet, 1 MG PO TID PRN for ANXIETY Prescribed by: ALBERT PARADA on 01/26/201804 Lorazepam 1 Mg Tablet, 1 MG SL Q4H PRN for AGITATION Prescribed by: JAMES RIVAS on 02/21/202008 Naproxen 500 Mg Tablet, 500 MG PO BID Prescribed by: DELBERT AIKEN on 01/19/20 1353 Topiramate 50 Mg Tablet, 50 MG PO BID, (Reported) Patient Home Medication List Home Medication List Reviewed: Yes Review of Systems Constitutional: see HPI, weakness EENTM: no symptoms reported Respiratory: no symptoms reported Cardiovascular: no symptoms reported Gastrointestinal: no symptoms reported Genitourinary: no symptoms reported : No Musculoskeletal: no symptoms reported Skin: no symptoms reported Psychiatric/Neurological: See HPI Past Qkckwrg-Svdusd-Mhvoil Hx Past Med/Social Hx: Reviewed Nursing Past Med/Soc Hx Patient Social History Alcohol Use: Denies Use Recreational Drug Use: No 2nd Hand Smoke Exposure: No Recent Foreign Travel: No Contact w/Someone Who Travel: No Recent Infectious Disease Expo: No Recent Hopitalizations: No Immunizations Up To Date Date of Pneumonia Vaccine: Dec 25, 2010 Date of Influenza Vaccine: Dec 25, 2010 Seasonal Allergies Seasonal Allergies: No Past Medical History Surgeries: Yes (VENA CAVA FILTER, RAND L FEET. ) Appendectomy, Cardiac, Eye Surgery, Gallbladder, Hysterectomy, Orthopedic, Tonsillectomy Respiratory: Yes Pulmonary Embolism Cardiac: Yes (ARYTHMIA AND PARTAIL BLOCKAGE) Neurological: Yes Headaches /Migraines, Seizure Disorder Reproductive Disorders: Yes Gastrointestinal: Yes Gastroesophageal Reflux, Diverticulosis, Hiatal Hernia, Ulcer Musculoskeletal: Yes Fibromyalgia, Rheumatoid Arthritis Endocrine: Yes Lupus HEENT: No Cancer: No Psychosocial: Yes Anxiety, PTSD, Suicide Attempts, Depression Integumentary: No Blood Disorders: No Physical Exam Vital Signs - First Documented 02/21/20 13:18 Pulse 110 Resp 18 B/P (MAP) 120/64 (82) Pulse Ox 100 Capillary Refill : Less Than 3 Seconds Height, Weight, BMI Height: 5'4.00" Weight: 150lbs. 6.0oz. 68.501212sg; 24.00 BMI Method:Stated General Appearance: WD/WN, no apparent distress, thin HEENT: PERRL/EOMI, normal ENT inspection, pharynx normal Neck: normal inspection Respiratory: lungs clear, normal breath sounds, no respiratory distress Cardiovascular: regular rate, rhythm, no edema, no murmur Gastrointestinal: normal bowel sounds, non tender, soft Extremities: normal inspection, no pedal edema Neurologic/Psychiatric: business continuity analyst II-XII nml as tested, no motor/sensory deficits, alert, normal mood/affect, oriented x 3, abnormal business continuity analyst II-XII Appearance/Memory: impaired insight, impaired recent memory Behavior/Eye Contact: cooperative, good eye contact, other (Speech can be pressured at times. Thoughts are scattered and tangential. She is irrational in her conclusions during conversation. She seems somewhat paranoid and distrusting.) Skin: normal color, warm/dry Progress/Results/Core Measures Results/Orders Lab Results Laboratory Tests Test 02/21/20 13:40 02/21/20 13:48 02/21/20 15:28 02/21/20 15:41 Range/Units White Blood Count 7.9 4.3-11.0 10^3/uL Red Blood Count 4.12 3.80-5.11 10^6/uL Hemoglobin 12.5 11.5-16.0 g/dL Hematocrit 42 35-52 % Mean Corpuscular Volume 101 H 80-99 fL Mean Corpuscular Hemoglobin 30 25-34 pg Mean Corpuscular Hemoglobin Concent 30 L 32-36 g/dL Red Cell Distribution Width 13.6 10.0-14.5 % Platelet Count 301 130-400 10^3/uL Mean Platelet Volume 10.9 9.0-12.2 fL Immature Granulocyte % (Auto) 0 % Neutrophils (%) (Auto) 78 H 42-75 % Lymphocytes (%) (Auto) 12 12-44 % Monocytes (%) (Auto) 8 0-12 % Eosinophils (%) (Auto) 1 0-10 % Basophils (%) (Auto) 1 0-10 % Neutrophils # (Auto) 6.2 1.8-7.8 10^3/uL Lymphocytes # (Auto) 0.9 L 1.0-4.0 10^3/uL Monocytes # (Auto) 0.6 0.0-1.0 10^3/uL Eosinophils # (Auto) 0.1 0.0-0.3 10^3/uL Basophils # (Auto) 0.1 0.0-0.1 10^3/uL Immature Granulocyte # (Auto) 0.0 0.0-0.1 10^3/uL Sodium Level 142 135-145 MMOL/L Potassium Level 4.6 3.6-5.0 MMOL/L Chloride Level 110 H 98-107 MMOL/L Carbon Dioxide Level 17 L 21-32 MMOL/L Anion Gap 15 H 5-14 MMOL/L Blood Urea Nitrogen 9 7-18 MG/DL Creatinine 1.21 0.60-1.30 MG/DL Estimat Glomerular Filtration Rate 45 BUN/Creatinine Ratio 7 Glucose Level 65 L 70-105 MG/DL Calcium Level 9.2 8.5-10.1 MG/DL Corrected Calcium 8.5-10.1 MG/DL Total Bilirubin 0.4 0.1-1.0 MG/DL Aspartate Amino Transf (AST/SGOT) 36 H 5-34 U/L Alanine Aminotransferase (ALT/SGPT) 21 0-55 U/L Alkaline Phosphatase 60 40-136 U/L C-Reactive Protein High Sensitivity 0.22 0.00-0.50 MG/DL Total Protein 7.8 6.4-8.2 GM/DL Albumin 4.8 H 3.2-4.5 GM/DL Glucometer 43 *L 128 H 70-110 MG/DL Urine Color YELLOW Urine Clarity CLEAR Urine pH 6.0 5-9 Urine Specific [place] >=1.030 1.016-1.022 Urine Protein NEGATIVE NEGATIVE Urine Glucose (UA) NEGATIVE NEGATIVE Urine Ketones 3+ H NEGATIVE Urine Nitrite NEGATIVE NEGATIVE Urine Bilirubin 2+ H NEGATIVE Urine Urobilinogen 0.2 < = 1.0 MG/DL Urine Leukocyte Esterase NEGATIVE NEGATIVE Urine RBC (Auto) 1+ H NEGATIVE Urine RBC 0-2 /HPF Urine WBC 0-2 /HPF Urine Squamous Epithelial Cells 0-2 /HPF Urine Crystals NONE /LPF Urine Bacteria TRACE /HPF Urine Casts PRESENT /LPF Urine Hyaline Casts 0-2 H /LPF Urine Mucus MODERATE H /LPF Urine Culture Indicated NO Urine Opiates Screen NEGATIVE NEGATIVE Urine Oxycodone Screen NEGATIVE NEGATIVE Urine Methadone Screen NEGATIVE NEGATIVE Urine Propoxyphene Screen NEGATIVE NEGATIVE Urine Barbiturates Screen NEGATIVE NEGATIVE Ur Tricyclic Antidepressants Screen NEGATIVE NEGATIVE Urine Phencyclidine Screen NEGATIVE NEGATIVE Urine Amphetamines Screen NEGATIVE NEGATIVE Urine Methamphetamines Screen NEGATIVE NEGATIVE Urine Benzodiazepines Screen NEGATIVE NEGATIVE Urine Cocaine Screen NEGATIVE NEGATIVE Urine Cannabinoids Screen NEGATIVE NEGATIVE Test 02/21/20 15:48 02/21/20 18:16 Range/Units Magnesium Level 2.3 1.6-2.4 MG/DL TSH [place] Testing 1.56 0.35-4.94 UIU/ML Salicylates Level < 5.0 L 5.0-20.0 MG/DL Acetaminophen Level < 10 L 10-30 UG/ML Serum Alcohol < 10 <10 MG/DL Coronavirus 2019 ([facility]) Negative Negative My Orders Orders - JAMES DELEON MD Ed Iv/Invasive Line Start (02/21/20 12:58) Cbc With Automated Diff (02/21/20 12:58) Comprehensive Metabolic Panel (02/21/20 12:58) Hs C Reactive Protein (02/21/20 12:58) Ua Culture If Indicated (02/21/20 12:58) Dextrose 10% Iv Solution (D10w 1000 Ml I (02/21/20 14:15) Accucheck Stat ONCE (02/21/20 15:30) Accucheck Stat ONCE (02/21/20 15:30) Ct Head Wo-R/O Stroke (02/21/20 15:48) Acetaminophen (02/21/20 15:48) Alcohol (02/21/20 15:48) Drug Screen Stat (Urine) (02/21/20 15:48) Magnesium (02/21/20 15:48) Salicylate (02/21/20 15:48) Thyroid Analyzer (02/21/20 15:48) Covid 19 Inhouse Test (02/21/20 17:46) Lorazepam Tablet (Ativan Tablet) (02/21/20 19:59) Medications Given in ED Vital Signs/I&O 02/21/20 20:23 Pulse 84 Resp 18 B/P (MAP) 134/61 (85) Pulse Ox 98 Blood Pressure Mean: 82 [facility] Bedside Testing Finger Stick Blood Glucose: 128 Blood Glucose Action Taken: notified Progress Progress Note #1: Time: 18:37 Progress Note Patient was started on a liter of D10 which did improve her blood sugar. She continues to express features of psychosis. Medical work-up is relatively unremarkable aside from hypoglycemia. I do not feel this patient can be safely and successfully treated by her family in the outpatient setting. I have suggested an evaluation by [facility]. Patient is agreeable and states she would be transferred voluntarily. Patient's daughter is also in agreement with this plan. I have reached out to [facility] and initiated the screening process. Progress Note #2: Progress Note [facility] could not screen during the ER visit and recommended home screening in the morning. Patient was given ativan and dismissed in to the care of her daughter. Departure Impression Primary Impression: Acute psychosis Additional Impression: Hypoglycemia Disposition: 01 HOME, SELF-CARE Condition: Improved Departure-Patient Inst. Decision time for Depature: 20:00 Referrals: [facility] (PCP/Family) Primary Care Physician Patient Instructions: Acute Psychosis (DC) Add. Discharge Instructions: Use Ativan as prescribed for agitation or insomnia. If you do not hear from the behavioral health team at [place] by 10:00 tomorrow morning, please call [facility] and ask for the senior behavioral health screener. The phone number is . Call or return to care if you have any further questions, concerns, or problems. Eat some foods with sugar or carbohydrates in them to keep your blood sugars up. All discharge instructions reviewed with patient and/or family. Voiced understanding. Scripts Lorazepam (Ativan) 1 Mg Tablet 1 MG SL Q4H PRN for AGITATION, #5 TAB Prov: JAMES DELEON MD 02/21/20 Copy Copies To 1: JHONNY DONOVAN JOSHUA T MD Feb 21, 2020 17:30
[2020-02-21] MEDS ORDERED: LORazepam 0.5 MG (ATIVAN) TABLET PO STA (19:59)
[2020-02-21] MEDS ORDERED: LORA-405 SL (20:08)
[2020-02-21 20:23] VITALS: BP 134/61
== END 2020-02-21 20:23 | disposition home or self-care (01) ==
LOC: EDUNIT# 12:27 → ER 12:29
DX: F23 Brief psychotic disorder (principal); F32.3 Major depressive disorder, single episode, severe with psychotic features; F41.9 Anxiety disorder, unspecified; G40.909 Epilepsy, unspecified, not intractable, without status epilepticus; Z20.828 Contact with and (suspected) exposure to other viral communicable diseases; Z79.82 Long term (current) use of aspirin
CPT/HCPCS: 70450; 80053; 80306; 81000; 82962; 83735; 84443; 85025; 86141; 99284; G0480 ×3; U0002; 36415; 80320; 80329; 87635

== ENCOUNTER → 2020-10-18 | Outpatient (CLI) | payer MEDICARE, OTHER, MEDICAID ==
[~2020-10-18] MED LIST changes: +LORA-405 SL
--- NOTE | 2020-10-19 12:19 | Diagnostic Imaging Report ---
Indication: Routine screening. Comparison is made prior mammogram 07/15/2007. 2-D and 3-D bilateral screening mammography was performed with CAD. Both breasts are heterogeneously dense, limiting the sensitivity of mammography. No mass or malignant-appearing microcalcifications are seen. There are vascular calcifications. Axillae are unremarkable. IMPRESSION: BI-RADS Category 1 No mammographic features suspicious for malignancy are identified. ACR BI-RADS Category 1: Negative. Result letter will be mailed to the patient. Note: At least 10% of breast cancer is not imaged by mammography. Dictated by: Dictated on workstation # [id number]
== END ==
LOC: RAD 15:00
PROVIDERS: ATTEND Nurse Practitioner
DX: Z12.31 Encounter for screening mammogram for malignant neoplasm of breast (principal)
CPT/HCPCS: 77063; 77067

== ENCOUNTER 2021-06-12 10:00 | Day surgery (SDC) | payer MEDICARE, MEDICAID ==
[~2021-06-12] VITALS: Ht 162.1 cm; Wt 83.8 kg
[2021-06-12 09:16] VITALS: BP 130/78
[~2021-06-12 10:00] MED LIST changes: +LIDOCAINE 1% INJ 50 ML (XYLOCAINE) VIAL ONE
--- NOTE | 2021-06-12 11:33 | OPERATIVE REPORT ---
DATE OF SERVICE: 06/12/2021 PREOPERATIVE DIAGNOSIS: Palpitations. POSTOPERATIVE DIAGNOSIS: Palpitations. PROCEDURE: Implantable loop recorder implantation. INDICATIONS: The patient is a 65-year-old lady who has intermittent atrial fibrillation and also reports a history of atrial fibrillation, although none has ever been documented. She states that the symptoms are relatively infrequent. She does not recall why she has been told that she has atrial fibrillation because none has ever been documented. Implantable loop recorder implantation was carried out today after having obtained an informed consent. DESCRIPTION OF PROCEDURE: [facility]. The left prepectoral area was prepared and draped in the usual sterile fashion. Lidocaine 1% was used for local anesthesia. The tools supplied with the [employer] LINQ II device were used to make a pocket anterior to the fourth intercostal space into which the device was placed and the wound edges were closed using Dermabond and Steri-Strips. The serial number of the device is [id number]. She tolerated the procedure well. Job ID: [id number] DocumentID: [id number] Dictated Date: 06/12/2021 10:41:20 Waste Removalist Date: 06/12/2021 11:33:06 Dictated By: LESIA MORA MD, MA, FACP, FACC,
== END 2021-06-12 11:05 | disposition home or self-care (01) ==
LOC: CATH 10:00
PROVIDERS: ATTEND Internal Medicine Cardiovascular Disease
DX: R00.2 Palpitations (principal); G43.909 Migraine, unspecified, not intractable, without status migrainosus; G40.909 Epilepsy, unspecified, not intractable, without status epilepticus; I25.10 Atherosclerotic heart disease of native coronary artery without angina pectoris; Z79.52 Long term (current) use of systemic steroids
CPT/HCPCS: 33285; C1764